=== PATIENT | female | born 2000 | race Caucasian/White ===

== ENCOUNTER 2023-04-14 18:09 | Emergency (ER) | payer BC, OTHER ==
[~2023-04-14] VITALS: Ht 154.9 cm; Wt 54.7 kg
[2023-04-14 18:43] VITALS: BP 158/70; PULSE 98; RESP 18; TEMP 98.5; O2SAT 100
[2023-04-14] MEDS ORDERED: dexamethasone sod phosphate 10mg/ml inj PO STA (20:05)
[2023-04-14] MEDS ORDERED: diphenhydrAMINE 50 mg/ml inj IM ONE (20:05)
[2023-04-14] MEDS ORDERED: CLIN300C54 PO (20:12)
== END 2023-04-14 20:39 | disposition home or self-care (01) ==
LOC: ER 18:10
DX: L50.9 Urticaria, unspecified (principal); L03.113 Cellulitis of right upper limb; Z88.8 Allergy status to other drugs, medicaments and biological substances; Z79.899 Other long term (current) drug therapy
CPT/HCPCS: 96372; 99283; J1100; J1200